=== PATIENT | female | born 1935 | race Caucasian/White ===

== ENCOUNTER 2016-04-30 18:49 | Emergency (ER) | payer BC ==
[2016-04-30 17:37] LABS: BASOPHILS 0.3 %; BASOPHILS ABSOLUTE 0.02 10/3/uL (0.0-0.16); EOSINOPHILS 2.1 %; EOSINOPHILS ABSOLUTE 0.12 10/3/uL (0.0-0.53); HEMATOCRIT 30.2 % (36.0-48.0); HEMOGLOBIN 9.6 g/dL (12.0-16.0); IMMATURE GRANULOCYTES 0.2 %; IMMATURE GRANULOCYTES ABSOLUTE 0.01 10/3/uL (0.0-0.11); LYMPHOCYTES 25.3 %; LYMPHOCYTES ABSOLUTE 1.45 10/3/uL (0.67-4.30); MANUAL DIFF NO %; MEAN CORPUS HGB CONC 31.8 g/dL (32.0-36.0); MEAN CORPUSCULAR HEMOGLOB 31.7 pg (26.0-34.0); MEAN CORPUSCULAR VOLUME 99.7 fL (80-100); MEAN PLATELET VOLUME 10.2 fL (9.2-13.0); MONOCYTES 9.2 %; MONOCYTES ABSOLUTE 0.53 10/3/uL (0.21-1.20); NEUTROPHILS 62.9 %; NEUTROPHILS ABSOLUTE 3.61 10/3/uL (2.02-8.40); PLATELET COUNT 239 10/3/uL (150-400); RBC DISTRIBUTION WIDTH 13.7 % (12.0-16.0); RED CELL COUNT 3.03 10/6/uL (4.0-5.6); WHITE BLOOD CELLS 5.7 10/3/uL (4.5-10.5)
[2016-04-30 17:48] LABS: INTERNATIONAL NORMAL RATI 3.9 UNITS (-); PARTIAL THROMBO TIME 43.9 SEC (22.5-37.2)
[2016-04-30 17:51] LABS: PROTIME (NOT ORD) 37.7 SEC (12.0-14.5)
[2016-04-30 17:52] LABS: BUN (BLOOD UREA NITROGEN) 27 MG/DL (6-23); CALCIUM, SERUM 8.5 MG/DL (8.5-10.4); CHEST PAIN PROFILE TAT 0 Hrs 19 Mins; CHLORIDE, SERUM 110 MMOL/L (96-112); CREATININE 1.25 MG/DL (0.55-1.02); GFR AFRICAN AMERICAN 47 ML/MIN (>=60); GFR NON AFRICAN AMERICAN 41 ML/MIN (>=60); GLUCOSE, SERUM 97 MG/DL (60-99); POTASSIUM, SERUM 4.3 MMOL/L (3.5-5.3); SODIUM, SERUM 143 MMOL/L (135-148); TROPONIN I 0.02 NG/ML (<0.05)
[2016-04-30 17:53] LABS: CO2 (CARBON DIOXIDE) 25 MMOL/L (24-34)
[~2016-04-30 18:49] MED LIST: ACET500CAP PO; ALEVE220 MG PO; ASAB PO; ATEN25 PO; ATEN50 PO; BETAPACE80 PO; COREG12 PO; COREG6 PO; DILT-XR120 MG PO; JANTOVEN5 MG PO; JANTOVEN6 MG PO; KDUR20 PO; KLOR-CON M2020 MEQ PO; L20 PO; LIPITOR80 MG PO; LOVENOX80 SC; LUMIGAN2.5 ML OPH; PLAVIX PO; PRILO PO; PRILOSEC OTC20 MG PO; PRIN2.5 PO
== END 2016-04-30 19:15 | disposition home or self-care (01) ==
LOC: ER 18:49
PROVIDERS: Specialist
DX: I48.91 Unspecified atrial fibrillation (principal); D64.9 Anemia, unspecified; I10 Essential (primary) hypertension; Z79.82 Long term (current) use of aspirin; Z79.01 Long term (current) use of anticoagulants; Z79.899 Other long term (current) drug therapy
CPT/HCPCS: 71010; 80048; 83735; 84484; 85025; 85610; 85730; 93005; 99285